=== PATIENT | female | born 1960 | race Caucasian/White ===

== ENCOUNTER → 2017-10-13 | Outpatient (CLI) | payer BC ==
[~2017-10-13] MED LIST: AMLO-298 PO; BUPR300T4 PO; CITA10TA4 PO; DOCU-131 PO; LACT1CAP35 PO; NORE5TAB PO; OXYC-302 BC; TURM500C7 PO
== END | disposition home or self-care (01) ==
LOC: CFH 13:19
PROVIDERS: ATTEND Nurse Practitioner Family
DX: K43.9 Ventral hernia without obstruction or gangrene (principal); K80.20 Calculus of gallbladder without cholecystitis without obstruction
CPT/HCPCS: 74150

== ENCOUNTER → 2020-07-18 | Outpatient (CLI) | payer OTHER, BC ==
[~2020-07-18] MED LIST changes: -AMLO-298 PO; +AMLO-307 PO; -BUPR300T4 PO; +BUPR300T94 PO
== END | disposition home or self-care (01) ==
LOC: CFH 08:34
PROVIDERS: ATTEND Family Medicine
DX: Z12.31 Encounter for screening mammogram for malignant neoplasm of breast (principal)
CPT/HCPCS: 77063; 77067